=== PATIENT | male | born 1990 | race African-American/Black ===

== ENCOUNTER 2023-04-04 06:00 | Emergency (ER) | payer SELFPAY ==
[~2023-04-04] VITALS: Ht 172.7 cm; Wt 73.0 kg
[2023-04-04 06:06] VITALS: O2SAT 98
[2023-04-04] MEDS ORDERED: TETRACAINE 0.5% OPHTH DROPS 4ML LEFTEYE ONE (07:00)
[2023-04-04] MEDS ORDERED: FLUORESCEIN SODIUM 1MG/STRIP LEFTEYE ONE (07:00)
[2023-04-04 07:27] VITALS: BP 138/77; PULSE 86; RESP 16; TEMP 97.2
== END 2023-04-04 07:24 | disposition home or self-care (01) ==
LOC: ER 06:00
DX: S05.12XA Contusion of eyeball and orbital tissues, left eye, initial encounter (principal); X58.XXXA Exposure to other specified factors, initial encounter; Y93.89 Activity, other specified; Y92.89 Other specified places as the place of occurrence of the external cause; Y99.8 Other external cause status
CPT/HCPCS: 99283

== ENCOUNTER 2025-04-03 02:06 | Emergency (ER) | payer SELFPAY ==
[~2025-04-03] VITALS: Ht 172.7 cm; Wt 56.6 kg
[2025-04-03 02:29] VITALS: O2SAT 99
[2025-04-03] MEDS ORDERED: DIPH50CA42 MT (03:24)
[2025-04-03 03:55] VITALS: BP 138/83; PULSE 67; RESP 15; TEMP 36.7; O2SAT 100
== END 2025-04-03 04:14 | disposition home or self-care (01) ==
LOC: ER 02:24
DX: Z76.0 Encounter for issue of repeat prescription (principal); Z59.00 Homelessness unspecified
CPT/HCPCS: 99282